=== PATIENT | female | born 2000 | race Caucasian/White ===

== ENCOUNTER 2018-03-16 06:11 | Emergency (ER) | payer OTHER ==
[~2018-03-16] VITALS: Ht 149.9 cm; Wt 53.1 kg
[2018-03-16 06:17] VITALS: TEMP 37.2; Ht 149.9 cm; Wt 53.1 kg
[2018-03-16] MEDS ORDERED: SODIUM CHLORIDE 0.9% 1000ML 1,000 ML IV STA (06:43)
[2018-03-16] MEDS ORDERED: ONDANSETRON INJ 2 MG/ML 2 ML VIAL IV STA (06:43)
[2018-03-16 06:58] LABS: BASO % 0.9 %; BASO ABS # 0.06 K/uL (0-0.2); EOS % 0.3 %; EOS ABS # 0.02 K/uL (0-0.5); HEMATOCRIT 38.8 % (37-47); HEMOGLOBIN 13.5 g/dL (12.0-16.0); IG# 0.01 K/uL (0.00-0.02); LYMPH % 32.3 %; LYMPH ABS # 2.13 K/uL (1.2-3.4); MEAN CORPUSCULAR HGB CONC 34.8 g/dl (32-36); MONO % 5.6 %; MONO ABS # 0.37 K/uL (0.11-0.59); NEUT % 60.7 %; NEUT ABS # 4.01 K/uL (1.4-6.5); PLATELET COUNT 138 K/uL (130-400); RED CELL DISTRIBUTION WIDTH CV 12.7 % (11.5-14.5); RED CELL DISTRIBUTION WIDTH SD 41.1 fL (36.4-46.3)
[2018-03-16 07:03] LABS: ALBUMIN 3.6 gm/dl (3.4-5.0); CALCIUM 8.8 mg/dl (8.5-10.1); CREATININE 0.74 mg/dl (0.60-1.20); POTASSIUM 3.9 mmol/L (3.5-5.1)
[2018-03-16 07:06] LABS: TOTAL PROTEIN 7.9 gm/dl (6.4-8.2)
--- NOTE | 2018-03-16 07:21 | DIAGNOSTIC IMAGING REPORT ---
CHEST ONE VIEW PORTABLE CLINICAL HISTORY: 18 years-old Female presenting with ABDOMINAL PAIN/GI. TECHNIQUE: Portable upright AP view of the chest was obtained. COMPARISON: None. FINDINGS: Cardiomediastinal silhouette normal. Lungs and pleural spaces clear. Osseous structures normal. Upper abdomen normal. IMPRESSION: 1. No acute cardiopulmonary disease. Electronically signed by: Nilesh Eckert M.D. 03/16/2018 7:20 AM Dictated Date/Time: 03/16/2018 7:20 AM
[2018-03-16] MEDS ORDERED: ACET-1693 PO (07:27)
[2018-03-16] MEDS ORDERED: ONDA4TAB10 SL (08:02)
--- NOTE | 2018-03-16 08:44 | EMERGENCY ROOM VISIT NOTE ---
History Report prepared by Scribe: Roxy Reid Under the Supervision of: Dr. Michael Tang D.O. First contact with patient: 06:37 Chief Complaint: ABDOMINAL PAIN Stated Complaint: ABDOMINAL PAIN/NAUSESA/VOMITING Nursing Triage Summary: Pt arrived via ALS from campus. Pt diagnosed with mono saturday, Plt count low. Blood work showed improvement. 3am this morning pt developed N/V with associated bilateral upper abd pain. History of Present Illness The patient is a 18 year old female who presents to the Emergency Room with complaints of persistent bilateral upper abdominal pain since 299 this morning. She was brought to the ED via EMS. She rates her discomfort as a 6/10 in severity. She has been nauseous and has vomited 4 times so far this morning. She has been unable to keep water down and states she feels dehydrated. The patient reports she was diagnosed with mononucleosis this past Saturday, 5 days [employer]. She also had blood work done that showed low platelets initially, but repeat labs taken 3 days [employer] have shown improvement. She notes even with the mononucleosis diagnosis she has not experienced a sore throat. She did experience a headache earlier this week but it has resolved. She also developed a rash 1 week ago, and states "it comes and goes". The patient denies any recent diarrhea. Source of History: patient Onset: 299 this morning Position: abdomen (RUQ, LUQ) Symptom Intensity: 6/10 Timing: other (persistent) Associated Symptoms: + nausea, + vomiting, + rash, No headache, No sorethroat, No diarrhea Review of Systems See HPI for pertinent positives & negatives. A total of 10 systems reviewed and were otherwise negative. Past Medical & Surgical Medical Problems: (1) Mononucleosis Social History Smoking Status: Never Smoker Alcohol Use: occasionally Drug Use: none Marital Status: single Housing Status: lives with roommate Occupation Status: [employer] student Current/Historical Medications Scheduled Ondasetron Odt (Zofran Odt), 4 MG SL Q6H Scheduled PRN Acetaminophen Tab (Tylenol), 325 MG PO UD PRN for Headache Allergies Coded Allergies: Amoxicillin (Unverified Allergy, Intermediate, RASH, 03/16/18) Physical Exam Vital Signs Date Time Temp Pulse Resp B/P (MAP) Pulse Ox O2 Delivery O2 Flow Rate FiO2 03/16/18 10:05 98 18 108/74 98 Room Air 03/16/18 09:23 98 18 111/67 97 Room Air 03/16/18 06:17 37.2 99 18 113/82 96 Room Air Physical Exam CONSTITUTIONAL/VITAL SIGNS: Reviewed / noted above. GENERAL: Non-toxic in appearance. INTEGUMENTARY: Warm, dry, and Jolly. HEAD: Normocephalic. EYES: without scleral icterus or trauma. ENT/OROPHARYNX: clear and moist. LYMPHADENOPATHY/NECK: Is supple without lymphadenopathy or meningismus. RESPIRATORY: Lungs clear and equal. CARDIOVASCULAR: Regular rate and rhythm. GI/ABDOMEN: Soft, mild upper abdominal tenderness. No organomegaly or pulsatile mass. No rebound or guarding. Normal bowel sounds. EXTREMITIES: Warm and well perfused. BACK: No CVA tenderness. NEUROLOGICAL: Intact without focal deficits. PSYCHIATRIC: normal affect. MUSCULOSKELETAL: Normally developed with good muscle tone. Medical Decision & Procedures ER Provider Diagnostic Interpretation: Radiology results as stated below per my review and radiologist interpretation: CHEST ONE VIEW PORTABLE CLINICAL HISTORY: 18 years-old Female presenting with ABDOMINAL PAIN/GI. TECHNIQUE: Portable upright AP view of the chest was obtained. COMPARISON: None. FINDINGS: Cardiomediastinal silhouette normal. Lungs and pleural spaces clear. Osseous structures normal. Upper abdomen normal. IMPRESSION: 1. No acute cardiopulmonary disease. Electronically signed by: Nilesh Eckert M.D. 03/16/2018 7:20 AM Laboratory Results 03/16/18 06:05 Red Blood Count 4.36, Mean Corpuscular Volume 89.0, Mean Corpuscular Hemoglobin 31.0, Mean Corpuscular Hemoglobin Concent 34.8, Mean Platelet Volume 10.0, Neutrophils (%) (Auto) 60.7, Lymphocytes (%) (Auto) 32.3, Monocytes (%) (Auto) 5.6, Eosinophils (%) (Auto) 0.3, Basophils (%) (Auto) 0.9, Neutrophils # (Auto) 4.01, Lymphocytes # (Auto) 2.13, Monocytes # (Auto) 0.37, Eosinophils # (Auto) 0.02, Basophils # (Auto) 0.06 03/16/18 06:05 Test 03/16/18 06:05 White Blood Count 6.60 K/uL (4.8-10.8) Red Blood Count 4.36 M/uL (4.2-5.4) Hemoglobin 13.5 g/dL (12.0-16.0) Hematocrit 38.8 % (37-47) Mean Corpuscular Volume 89.0 fL (80-100) Mean Corpuscular Hemoglobin 31.0 pg (25-34) Mean Corpuscular Hemoglobin Concent 34.8 g/dl (32-36) Platelet Count 138 K/uL (130-400) Mean Platelet Volume 10.0 fL (7.4-10.4) Neutrophils (%) (Auto) 60.7 % Lymphocytes (%) (Auto) 32.3 % Monocytes (%) (Auto) 5.6 % Eosinophils (%) (Auto) 0.3 % Basophils (%) (Auto) 0.9 % Neutrophils # (Auto) 4.01 K/uL (1.4-6.5) Lymphocytes # (Auto) 2.13 K/uL (1.2-3.4) Monocytes # (Auto) 0.37 K/uL (0.11-0.59) Eosinophils # (Auto) 0.02 K/uL (0-0.5) Basophils # (Auto) 0.06 K/uL (0-0.2) RDW Standard Deviation 41.1 fL (36.4-46.3) RDW Coefficient of Variation 12.7 % (11.5-14.5) Immature Granulocyte % (Auto) 0.2 % Immature Granulocyte # (Auto) 0.01 K/uL (0.00-0.02) Urine Color DK YELLOW Urine Appearance CLEAR (CLEAR) Urine pH 6.0 (4.5-7.5) Urine Specific [place] 1.027 (1.000-1.030) Urine Protein NEG (NEG) Urine Glucose (UA) NEG (NEG) Urine Ketones 1+ (NEG) Urine Occult Blood NEG (NEG) Urine Nitrite NEG (NEG) Urine Bilirubin NEG (NEG) Urine Urobilinogen NEG (NEG) Urine Leukocyte Esterase NEG (NEG) Urine WBC (Auto) 1-5 /hpf (0-5) Urine RBC (Auto) 0-4 /hpf (0-4) Urine Hyaline Casts (Auto) 1-5 /lpf (0-5) Urine Epithelial Cells (Auto) >30 /lpf (0-5) Urine Bacteria (Auto) NEG (NEG) Urine Renal Epithelial Cells /lpf (0-5) Anion Gap 5.0 mmol/L (3-11) Est Creatinine Clear Calc Drug Dose 90.3 ml/min Estimated GFR () 135.2 Estimated GFR (Non- 116.6 BUN/Creatinine Ratio 18.8 (10-20) Calcium Level 8.8 mg/dl (8.5-10.1) Total Bilirubin 1.0 mg/dl (0.2-1) Direct Bilirubin 0.3 mg/dl (0-0.2) Aspartate Amino Transf (AST/SGOT) 312 U/L (15-37) Alanine Aminotransferase (ALT/SGPT) 510 U/L (12-78) Alkaline Phosphatase 189 U/L (45-117) Total Protein 7.9 gm/dl (6.4-8.2) Albumin 3.6 gm/dl (3.4-5.0) Lyme Disease IgG Antibody NEG (NEG) Laboratory results as stated above per my review. Medications Administered Medications (Trade) Dose Ordered Sig/Zachary Route Start Time Stop Time Status Last Admin Dose Admin Sodium Chloride 1,000 ml @ 999 mls/hr Q1H1M STAT IV 03/16/18 06:43 03/16/18 07:43 DC 03/16/18 06:51 999 MLS/HR Ondansetron HCl (Zofran Inj) 4 mg NOW STAT IV 03/16/18 06:43 03/16/18 06:46 DC 03/16/18 06:50 4 MG Ondansetron HCl (ZOFRAN ODT 4MG Home Pack) 1 homepack UD ONCE PO 03/16/18 09:45 03/16/18 09:46 DC 03/16/18 10:03 1 HOMEPACK Ondansetron HCl (Zofran Odt) 4 mg NOW STAT PO 03/16/18 09:34 03/16/18 09:36 DC 03/16/18 10:04 4 MG ED Course 0639: Previous medical records were reviewed. The patient was evaluated in room A12B. A complete history and physical examination was performed. 0643: Zofran 4 mg IV, NSS 1000 ml @ 999 mls/hr IV. 0838: On reevaluation, the patient is feeling better. I discussed the results and findings with the patient. She verbalized agreement of the treatment plan. She was discharged home. 0920: Nursing informed me the patient felt nauseous when she stood up to leave. I will order Zofran. 0934: Zofran 4 mg PO. 0945: Zofran 4 mg 1 home pack PO. Medical Decision Etiologies such as gastroenteritis, food borne illness, infections, appendicitis , diverticulitis, inflammatory bowel disease, obstruction, GI bleed, biliary pathology, as well as others were entertained. This is a 18-year-old female who presents to the ED with a chief complaint of vomiting 3 as well as some upper abdominal discomfort that started around 3 AM. She states that the discomfort initially started followed by the vomiting. She states that she feels dehydrated. The pain in the upper abdomen is both upper quadrants and epigastric area. Her vital signs here are normal. Her physical exam revealed mild tenderness to the upper abdomen. There was no peritonitis. The patient's exam was otherwise unremarkable. She does have some posterior oropharyngeal erythema without exudate. The patient states that she was diagnosed with mono 5 days ago. Chest x-ray did not show acute process , CBC is normal, complete metabolic panel was unremarkable, AST and ALT are elevated as is alkaline phosphatase. Urine did not show infection. The patient was treated with IV fluids and IV Zofran. Patient was feeling better. A prescription for Zofran was provided. She was felt to be stable for discharge. My clinical exam and based on the patient's lack of significant discomfort, I do not suspect spontaneous splenic rupture. Medication Reconcilliation Current Medication List: was personally reviewed by me Blood Pressure Screening Patient's blood pressure: Normal blood pressure Blood pressure disposition: Did not require urgent referral Impression Primary Impression: Vomiting Additional Impressions: Upper abdominal pain Mononucleosis Viral hepatitis Scribe Attestation The scribe's documentation has been prepared under my direction and personally reviewed by me in its entirety. I confirm that the note above accurately reflects all work, treatment, procedures, and medical decision making performed by me. Departure Information Dispostion Home / Self-Care Prescriptions Ondasetron Odt (ZOFRAN ODT) 4 Mg Tab 4 MG SL Q6H for Nausea, #15 TAB Prov: Michael Tang D.O. 03/16/18 Patient Instructions ED Mononucleosis, [facility] Additional Instructions Zofran: Allow one tablet to dissolve under the tongue every 6 hours as needed for nausea or vomiting. Follow-up with your doctor for further care and evaluation in 1-2 days. Return to the emergency department for worsening or new symptoms or any concerns. You have been examined and treated today on an emergency basis only. This is not a substitute for, or an effort to provide, complete comprehensive medical care. It is impossible to recognize and treat all injuries or illnesses in a single emergency department visit. It is therefore important that you follow up closely with your doctor. Call as soon as possible for an appointment. Problem Qualifiers
[2018-03-16] MEDS ORDERED: ONDANSETRON 2MG ODT PO STA (09:34)
[2018-03-16] MEDS ORDERED: ONDANSETRON HOME PACK 4MG OD TAB PO ONE (09:45)
[2018-03-16 10:05] VITALS: BP 108/74; PULSE 98; O2SAT 98
== END 2018-03-16 10:16 | disposition home or self-care (01) ==
LOC: EDBD 06:11 → C.EDA 06:12
DX: R11.10 Vomiting, unspecified (principal); R10.10 Upper abdominal pain, unspecified; B27.90 Infectious mononucleosis, unspecified without complication; B19.9 Unspecified viral hepatitis without hepatic coma